=== PATIENT | female | born 1980 | race Caucasian/White ===

== ENCOUNTER 2023-01-11 05:54 | Inpatient (IN) | payer OTHER ==
[2023-01-11] MEDS ORDERED: MAGNESIUM SULF 50% (8.12 MEQ/2 ML-1 GM VIAL) IVPB ONE (06:17)
[2023-01-11] MEDS: ALBUTEROL SO4 2.5/IPRATROPIUM 0.5 INH SOL 3 ML VIAL.NEB. NEB SCH ×5 (06:20→19:27)
[2023-01-11] MEDS ORDERED: MAGNESIUM SULFATE IN WATER 2 GM/50 ML IVPB IVPB ONE (06:22)
[2023-01-11] MEDS ORDERED: MONTELUKAST NA 10 MG TABLET PO ONE (06:26)
[2023-01-11] MEDS ORDERED: methylPREDNISolone NA SUCC 125 MG/2 ML VIAL IVPUSH ONE (06:46)
[2023-01-11] MEDS ORDERED: MONTELUKAST NA 10 MG TABLET ONE (06:50)
[2023-01-11] MEDS ORDERED: methylPREDNISolone NA SUCC 125 MG/2 ML VIAL ONE (06:51)
[2023-01-11 07:11] LABS: POTASSIUM 3.9 mmol/L (3.5-5.1)
[2023-01-11 07:13] LABS: ALBUMIN 3.5 g/dl (3.4-5.0); BLOOD UREA NITROGEN 13.6 mg/dL (7-18); CALCIUM 8.7 mg/dL (8.5-10.1); MAGNESIUM 2.2 mg/dL (1.8-2.4)
[2023-01-11 07:16] LABS: CREATININE 0.8 mg/dL (0.55-1.3)
[2023-01-11 07:18] LABS: BILIRUBIN,TOTAL 0.4 mg/dL (0.2-1); TOT PROT 7.2 g/dl (6.4-8.2)
[2023-01-11 07:20] LABS: BASO % 0.2 % (0-2.0); EOS % 1.2 % (0-4.5); HEMATOCRIT 36.6 % (32.4-45.2); HEMOGLOBIN 11.9 GM/dL (10.7-15.3); INR 1.03 (0.83-1.09); LYMPH % 13.2 % (8-40); MCHC 32.4 g/dl (32.0-36.0); MEAN CELL VOLUME 86.6 fl (80-96); MEAN PLT VOLUME 7.9 fl (7.5-11.1); MONO % 8.8 % (3.8-10.2); NEUT % 76.6 % (42.8-82.8); PLATELET COUNT 405 10^3/uL (134-434); PROTHROMBIN TIME (PATIENT) 11.9 SEC (9.7-13.0); RBC 4.23 M/mm3 (3.60-5.2); RDW 14.6 % (11.6-15.6)
[2023-01-11 07:23] LABS: ACTIVATED PTT 27.3 SECONDS (25.2-36.5)
[2023-01-11] MEDS ORDERED: PSEUDOEPHEDRINE HCL 60 MG TABLET PO ONE (07:26)
[2023-01-11] MEDS ORDERED: AZITHROMYCIN 250 MG TABLET PO ONE (07:26)
[2023-01-11] MEDS ORDERED: PSEUDOEPHEDRINE HCL 60 MG TABLET ONE (07:58)
[2023-01-11] MEDS ORDERED: AZITHROMYCIN IVPB 500 MG in DEXTROSE 5%-WATER - 250 ML IVPB ONE (08:12)
[2023-01-11] MEDS ORDERED: AZITHROMYCIN IVPB 500 MG/250 ML BAG IVPB ONE ×2 (08:45→08:49)
[2023-01-11] MEDS ORDERED: ALBUTEROL SO4 2.5/IPRATROPIUM 0.5 INH SOL 3 ML VIAL.NEB. NEB PRN (13:27)
[2023-01-11] MEDS ORDERED: ACETAMINOPHEN 325 MG TABLET (FP) PO PRN (13:27)
[2023-01-11] MEDS ORDERED: ALBUTEROL SO4 0.083% IH SOL 2.5 MG/3 ML VIAL.NEB. NEB PRN (14:41)
[2023-01-11] MEDS ORDERED: ALBUTEROL SO4 2.5/IPRATROPIUM 0.5 INH SOL 3 ML VIAL.NEB. NEB ONE ×2 (14:59→19:25)
[2023-01-11] MEDS ORDERED: methylPREDNISolone NA SUCC 40 MG/1 ML VIAL ONE ×2 (14:59→21:20)
[2023-01-11] MEDS: methylPREDNISolone NA SUCC 40 MG/1 ML VIAL IVPUSH SCH ×3 (15:29→21:39)
[2023-01-11] MEDS ORDERED: methylPREDNISolone NA SUCC 40 MG/1 ML VIAL IVPUSH SCH (18:00)
[2023-01-11] MEDS: BUDESONIDE 0.5 MG/2 ML INH SUSP VIAL NEB SCH (21:39)
[2023-01-11] MEDS: MONTELUKAST NA 10 MG TABLET PO SCH (23:44)
[2023-01-11] MEDS: MELATONIN 5 MG TABLETS PO PRN (23:47)
[2023-01-12] MEDS: ALBUTEROL SO4 2.5/IPRATROPIUM 0.5 INH SOL 3 ML VIAL.NEB. NEB SCH ×7 (02:45→20:05)
[2023-01-12] MEDS: methylPREDNISolone NA SUCC 40 MG/1 ML VIAL IVPUSH SCH ×4 (03:00→21:46)
[2023-01-12 03:42] VITALS: BMI 38.0
[2023-01-12] MEDS: BUDESONIDE 0.5 MG/2 ML INH SUSP VIAL NEB SCH ×2 (08:45→20:05)
[2023-01-12 11:36] LABS: BASO % 0.1 % (0-2.0); HEMATOCRIT 37.9 % (32.4-45.2); HEMOGLOBIN 12.4 GM/dL (10.7-15.3); LYMPH % 5.2 % (8-40); MCH 27.9 pg (25.7-33.7); MCHC 32.8 g/dl (32.0-36.0); MEAN PLT VOLUME 7.2 fl (7.5-11.1); NEUT % 90.7 % (42.8-82.8); PLATELET COUNT 404 10^3/uL (134-434); RBC 4.46 M/mm3 (3.60-5.2); RDW 14.7 % (11.6-15.6); WHITE BLOOD COUNT 16.7 K/mm3 (4.0-10.0)
[2023-01-12 12:02] LABS: POTASSIUM 4.2 mmol/L (3.5-5.1)
[2023-01-12 12:06] LABS: ALBUMIN 3.2 g/dl (3.4-5.0); BLOOD UREA NITROGEN 11.2 mg/dL (7-18); CALCIUM 9.3 mg/dL (8.5-10.1)
[2023-01-12 12:09] LABS: CREATININE 0.7 mg/dL (0.55-1.3)
[2023-01-12 12:11] LABS: BILIRUBIN,TOTAL 0.4 mg/dL (0.2-1)
[2023-01-12 12:12] LABS: TOT PROT 7.1 g/dl (6.4-8.2)
[2023-01-12] MEDS: BUDESONIDE/FORMETEROL FUMARATE 160/4.5 mcg INHALER IH SCH (21:44)
[2023-01-12] MEDS: MONTELUKAST NA 10 MG TABLET PO SCH (21:46)
[2023-01-12] MEDS: MELATONIN 5 MG TABLETS PO PRN (21:54)
[2023-01-13] MEDS: ALBUTEROL SO4 2.5/IPRATROPIUM 0.5 INH SOL 3 ML VIAL.NEB. NEB SCH ×6 (00:10→20:05)
[2023-01-13] MEDS: methylPREDNISolone NA SUCC 40 MG/1 ML VIAL IVPUSH SCH ×3 (02:30→17:55)
[2023-01-13] MEDS: BUDESONIDE 0.5 MG/2 ML INH SUSP VIAL NEB SCH ×2 (07:50→20:05)
[2023-01-13] MEDS: BUDESONIDE/FORMETEROL FUMARATE 160/4.5 mcg INHALER IH SCH ×2 (09:31→21:56)
[2023-01-13] MEDS: MONTELUKAST NA 10 MG TABLET PO SCH (21:55)
[2023-01-13 22:17] VITALS: RESP 20
[2023-01-14] MEDS: methylPREDNISolone NA SUCC 40 MG/1 ML VIAL IVPUSH SCH ×2 (01:41→10:58)
[2023-01-14] MEDS: BUDESONIDE 0.5 MG/2 ML INH SUSP VIAL NEB SCH ×2 (07:35→20:13)
[2023-01-14] MEDS: ALBUTEROL SO4 2.5/IPRATROPIUM 0.5 INH SOL 3 ML VIAL.NEB. NEB SCH ×5 (07:40→20:25)
[2023-01-14] MEDS: BUDESONIDE/FORMETEROL FUMARATE 160/4.5 mcg INHALER IH SCH ×2 (10:58→22:01)
[2023-01-14] MEDS ORDERED: methylPREDNISolone NA SUCC 40 MG/1 ML VIAL IVPUSH SCH (14:00)
[2023-01-14] MEDS ORDERED: KETOROLAC TROMETHAMINE 30 MG/1 ML VIAL IVPUSH PRN (15:23)
[2023-01-14] MEDS: PANTOPRAZOLE 40 MG TABLET PO SCH (16:39)
[2023-01-14] MEDS: LIDOCAINE 5% TOPICAL PATCH TP SCH (16:39)
[2023-01-14] MEDS ORDERED: diphenhydrAMINE HCL 25 MG CAPSULE (FP) PO PRN (16:58)
[2023-01-14] MEDS: predniSONE 20 MG TABLET (UD) PO SCH (18:40)
[2023-01-14] MEDS ORDERED: LIDOCAINE PATCH REMOVAL MC SCH (22:00)
[2023-01-14] MEDS: MONTELUKAST NA 10 MG TABLET PO SCH (22:02)
[2023-01-15] MEDS: ALBUTEROL SO4 2.5/IPRATROPIUM 0.5 INH SOL 3 ML VIAL.NEB. NEB SCH ×2 (07:48→11:29)
[2023-01-15] MEDS: BUDESONIDE 0.5 MG/2 ML INH SUSP VIAL NEB SCH (07:49)
[2023-01-15] MEDS: PANTOPRAZOLE 40 MG TABLET PO SCH (10:11)
[2023-01-15] MEDS: predniSONE 20 MG TABLET (UD) PO SCH (10:11)
[2023-01-15] MEDS: BUDESONIDE/FORMETEROL FUMARATE 160/4.5 mcg INHALER IH SCH (10:12)
[2023-01-15] MEDS: LIDOCAINE 5% TOPICAL PATCH TP SCH (10:12)
[2023-01-15 10:15] VITALS: BP 128/65; PULSE 88; TEMP 98
== END 2023-01-15 14:30 | disposition home or self-care (01) | DRG 141 ==
LOC: JER 05:54 → JERBED 08:14 → J8W 22:59 → OBSVTOIN 01-12 12:06
PROVIDERS: ADMIT Family Medicine; ATTEND Family Medicine
DX: J45.52 Severe persistent asthma with status asthmaticus (principal); G47.33 Obstructive sleep apnea (adult) (pediatric)
CPT/HCPCS: 0241U-QW; 36415; 71045-TC-FY; 80053; 83735; 84703; 85025; 85610; 85730; 94640; 99285-25; G0378

== ENCOUNTER 2023-12-13 19:56 | Emergency (ER) | payer OTHER ==
[2023-12-13 20:01] VITALS: BP 127/76; PULSE 105; RESP 24; TEMP 98.8; BMI 34.2
[2023-12-13] MEDS ORDERED: ALBUTEROL SO4 2.5/IPRATROPIUM 0.5 INH SOL 3 ML VIAL.NEB. NEB ONE ×3 (20:47→22:01)
[2023-12-13 20:54] LABS: BASO % 0.6 % (0-2.0); EOS % 6.6 % (0-4.5); HEMATOCRIT 35.9 % (32.4-45.2); MCH 28.9 pg (25.7-33.7); MCHC 33.5 g/dl (32.0-36.0); MEAN CELL VOLUME 86.2 fl (80-96); MEAN PLT VOLUME 7.1 fl (7.5-11.1); MONO % 9.6 % (3.8-10.2); NEUT % 41.2 % (42.8-82.8); PLATELET COUNT 418 10^3/uL (134-434); RBC 4.16 M/mm3 (3.60-5.2); WHITE BLOOD COUNT 6.1 K/mm3 (4.0-10.0)
[2023-12-13] MEDS: ALBUTEROL SO4 2.5/IPRATROPIUM 0.5 INH SOL 3 ML VIAL.NEB. NEB SCH (20:54)
[2023-12-13 21:14] LABS: POTASSIUM 3.7 mmol/L (3.5-5.1)
[2023-12-13 21:16] LABS: ALBUMIN 3.8 g/dl (3.4-5.0); CALCIUM 9.5 mg/dL (8.5-10.1); MAGNESIUM 2.1 mg/dL (1.8-2.4)
[2023-12-13 21:19] LABS: CREATININE 0.9 mg/dL (0.55-1.3)
[2023-12-13] MEDS: DEXAMETHASONE SOD PHOSPHATE 20 MG/5 ML VIAL IVPB ONE (21:20)
[2023-12-13 21:21] LABS: BILIRUBIN,TOTAL 0.6 mg/dL (0.2-1); TOT PROT 7.5 g/dl (6.4-8.2)
[2023-12-13] MEDS ORDERED: DEXAMETHASONE SOD PHOSPHATE 10 MG/1 ML VIAL ONE (21:21)
[2023-12-13] MEDS ORDERED: DEXAMETHASONE SOD PHOSPHATE 4 MG/1 ML VIAL ONE (21:23)
== END 2023-12-13 23:31 | disposition home or self-care (01) ==
LOC: JER 19:56
PROC: 3E033GC Introduction of Other Therapeutic Substance into Peripheral Vein, Percutaneous Approach (ICD-10-PCS; principal; 2023-12-13)
DX: J45.909 Unspecified asthma, uncomplicated (principal); R06.02 Shortness of breath; R05.9 Cough, unspecified; Z20.822 Contact with and (suspected) exposure to COVID-19
CPT/HCPCS: 0241U-QW; 36415; 71046-TC-FY; 80053; 83735; 84484; 84703; 85025; 93005; 93010; 99285-25

== ENCOUNTER 2024-03-31 21:41 | Observation (INO) | payer OTHER ==
[2024-03-31 21:50] VITALS: BMI 30.2
[2024-03-31] MEDS ORDERED: ALBUTEROL SO4 2.5/IPRATROPIUM 0.5 INH SOL 3 ML VIAL.NEB. NEB ONE (21:50)
[2024-03-31] MEDS: ALBUTEROL SO4 2.5/IPRATROPIUM 0.5 INH SOL 3 ML VIAL.NEB. NEB ONE ×3 (22:00→22:30)
[2024-03-31] MEDS ORDERED: methylPREDNISolone NA SUCC 125 MG/2 ML VIAL ONE (22:07)
[2024-03-31] MEDS ORDERED: MAGNESIUM SULFATE IN WATER 2 GM/50 ML IVPB IVPB ONE (22:08)
[2024-03-31] MEDS: methylPREDNISolone NA SUCC 125 MG/2 ML VIAL IVPB ONE (22:29)
[2024-03-31] MEDS: MAGNESIUM SULF 50% (8.12 MEQ/2 ML-1 GM VIAL) IVPB ONE (22:29)
[2024-03-31 22:34] LABS: MCH 28.3 pg (25.7-33.7); MCHC 32.5 g/dl (32.0-36.0); MEAN CELL VOLUME 87.1 fl (80-96); MEAN PLT VOLUME 7.2 fl (7.5-11.1); PLATELET COUNT 438 10^3/uL (134-434); RBC 4.25 M/mm3 (3.60-5.2); RDW 14.4 % (11.6-15.6)
[2024-03-31 22:48] LABS: POTASSIUM 4.3 mmol/L (3.5-5.1)
[2024-03-31 22:50] LABS: CALCIUM 9.5 mg/dL (8.5-10.1)
[2024-03-31 22:51] LABS: ALBUMIN 3.6 g/dl (3.4-5.0); BLOOD UREA NITROGEN 13.9 mg/dL (7-18)
[2024-03-31 22:55] LABS: CREATININE 0.8 mg/dL (0.55-1.3)
[2024-03-31 22:56] LABS: BILIRUBIN,TOTAL 0.4 mg/dL (0.2-1); TOT PROT 7.4 g/dl (6.4-8.2)
[2024-03-31] MEDS ORDERED: ALBUTEROL SO4 0.083% IH SOL 2.5 MG/3 ML VIAL.NEB. NEB ONE (23:23)
[2024-03-31] MEDS: ALBUTEROL SO4 0.083% IH SOL 2.5 MG/3 ML VIAL.NEB. NEB ONE ×2 (23:24)
[2024-03-31 23:42] LABS: ANISOCYTOSIS 1+; MACROCYTOSIS 0
[2024-04-01] MEDS: ALBUTEROL SO4 2.5/IPRATROPIUM 0.5 INH SOL 3 ML VIAL.NEB. NEB ONE (03:19)
[2024-04-01] MEDS: ALBUTEROL SO4 2.5/IPRATROPIUM 0.5 INH SOL 3 ML VIAL.NEB. NEB SCH (08:42)
[2024-04-01 09:32] LABS: BASO % 0.1 % (0-2.0); HEMATOCRIT 35.6 % (32.4-45.2); HEMOGLOBIN 11.6 GM/dL (10.7-15.3); LYMPH % 6.2 % (8-40); MCH 28.1 pg (25.7-33.7); MCHC 32.5 g/dl (32.0-36.0); MEAN CELL VOLUME 86.5 fl (80-96); MEAN PLT VOLUME 7.5 fl (7.5-11.1); MONO % 3.1 % (3.8-10.2); NEUT % 90.6 % (42.8-82.8); PLATELET COUNT 422 10^3/uL (134-434); RBC 4.11 M/mm3 (3.60-5.2); RDW 14.3 % (11.6-15.6); WHITE BLOOD COUNT 13.8 K/mm3 (4.0-10.0)
[2024-04-01] MEDS: methylPREDNISolone NA SUCC 40 MG/1 ML VIAL IVPUSH SCH (09:33)
[2024-04-01] MEDS: PANTOPRAZOLE SODIUM 40 MG VIAL IVPUSH SCH (09:33)
[2024-04-01] MEDS: ENOXAPARIN NA (PORCINE) 40 MG/0.4 ML DISP.SYRIN SQ SCH (09:35)
[2024-04-01 10:02] LABS: POTASSIUM 4.3 mmol/L (3.5-5.1)
[2024-04-01 10:07] LABS: CALCIUM 9.1 mg/dL (8.5-10.1)
[2024-04-01 10:08] LABS: BLOOD UREA NITROGEN 8.1 mg/dL (7-18)
[2024-04-01 10:12] LABS: CREATININE 0.6 mg/dL (0.55-1.3)
[2024-04-01] MEDS: BUDESONIDE/FORMETEROL FUMARATE 160/4.5 mcg INHALER IH SCH (10:36)
[2024-04-01] MEDS: diphenhydrAMINE HCL 25 MG CAPSULE (FP) PO PRN (13:16)
[2024-04-01] MEDS: ZOLPIDEM TARTRATE 5 MG TABLET PO ONE (21:29)
[2024-04-01] MEDS: MELATONIN 5 MG TABLETS PO PRN (21:29)
[2024-04-01] MEDS: MONTELUKAST NA 5 MG TAB.CHEW PO SCH (21:29)
[2024-04-02] MEDS: PANTOPRAZOLE 40 MG TABLET PO SCH (09:37)
[2024-04-02 16:13] VITALS: RESP 18
[2024-04-02] MEDS: predniSONE 20 MG TABLET (UD) PO SCH (16:34)
[2024-04-03 13:59] VITALS: TEMP 98.2
[2024-04-03 14:13] VITALS: BP 114/74; PULSE 109
[2024-04-03] MEDS ORDERED: MONTELUKAST NA 10 MG TABLET PO SCH (22:00)
== END 2024-04-03 14:45 | disposition home or self-care (01) ==
LOC: JER 21:41 → JERBED 23:22 → J8W 04-01 01:10
PROVIDERS: ADMIT Internal Medicine; ATTEND Family Medicine
PROC: 3E033GC Introduction of Other Therapeutic Substance into Peripheral Vein, Percutaneous Approach (ICD-10-PCS; principal; 2024-03-31)
PROC: 3E0337Z Introduction of Electrolytic and Water Balance Substance into Peripheral Vein, Percutaneous Approach (ICD-10-PCS; 2024-03-31)
DX: J45.41 Moderate persistent asthma with (acute) exacerbation (principal)
CPT/HCPCS: 36415; 71045-TC-FY; 80048; 80053; 83735; 84703; 85025; 87040; 94150; 94640; 96374; 96375; 99285-25; G0378

== ENCOUNTER 2024-10-26 13:08 | Emergency (ER) | payer OTHER ==
[2024-10-26 13:16] VITALS: TEMP 99.1; BMI 32.1
[2024-10-26] MEDS ORDERED: predniSONE 20 MG TABLET (UD) ONE (13:59)
[2024-10-26] MEDS: ALBUTEROL SO4 2.5/IPRATROPIUM 0.5 INH SOL 3 ML VIAL.NEB. NEB SCH (14:02)
[2024-10-26] MEDS: predniSONE 20 MG TABLET (UD) PO ONE (14:30)
[2024-10-26] MEDS: ALBUTEROL SO4 2.5/IPRATROPIUM 0.5 INH SOL 3 ML VIAL.NEB. NEB ONE (15:50)
[2024-10-26 16:31] VITALS: PULSE 82
[2024-10-26 17:14] VITALS: BP 119/57; RESP 20
== END 2024-10-26 17:30 | disposition home or self-care (01) ==
LOC: JER 13:08
PROC: 3E0F7GC Introduction of Other Therapeutic Substance into Respiratory Tract, Via Natural or Artificial Opening (ICD-10-PCS; principal; 2024-10-26)
PROC: 3E0F7GC Introduction of Other Therapeutic Substance into Respiratory Tract, Via Natural or Artificial Opening (ICD-10-PCS; 2024-10-26)
DX: J45.901 Unspecified asthma with (acute) exacerbation (principal); R06.02 Shortness of breath; R06.03 Acute respiratory distress; R07.89 Other chest pain
CPT/HCPCS: 0241U-QW; 99284-25